=== PATIENT | male | born 1985 | race Caucasian/White ===

== ENCOUNTER 2017-02-18 19:49 | Emergency (ER) | payer SELFPAY ==
[~2017-02-18] VITALS: Ht 177.8 cm; Wt 67.7 kg
[2017-02-18 19:50] VITALS: TEMP 98.6
[2017-02-18] MEDS ORDERED: ATARAX 10MG10 MG/TAB PO (19:55)
[2017-02-18 21:29] LABS: BASO % 0.2 % (0.0-2.0); EOS % 0.1 % (0-4.0); GRAN # 14.9 (1.4-6.5); GRAN % 89.4 % (42.2-75.2); HEMATOCRIT 47.9 % (42.0-52.0); LYMPH # 0.5 (1.2-3.4); LYMPH % 2.8 % (20.0-51.0); MEAN CELL VOLUME 88 fl (80.0-100.0); MEAN CORPUSCULAR HEMOGLOBIN 29 pg (27.0-31.0); MEAN CORPUSCULAR HGB CONC 33 g/dl (33.0-37.0); MEAN PLATELET VOLUME 10.1 fl (7.4-10.4); MONO # 1.2 (0.1-0.6); MONO % 7.1 % (1.7-9.3); PLATELET COUNT 373 K/mm3 (130-400); RED BLOOD COUNT 5.44 M/mm3 (4.20-5.60); WHITE BLOOD COUNT 16.7 K/mm3 (4.8-10.8)
[2017-02-18 21:38] LABS: ALBUMIN 5.6 gm/dL (3.5-5.0); BILIRUBIN,TOTAL 0.9 mg/dL (0.0-1.0); CALCIUM 10.3 mg/dL (8.4-10.2); CREATININE, serum 0.66 mg/dL (0.66-1.25); POTASSIUM 3.5 mmol/L (3.4-5.0)
[2017-02-18 23:37] VITALS: BP 110/82; PULSE 99
[2017-02-18] MEDS ORDERED: PHENERGAN 25 TA25 MG PO (23:53)
== END 2017-02-18 23:37 | disposition home or self-care (01) ==
LOC: COL.ER 19:49
PROVIDERS: Physician Assistant
DX: R11.2 Nausea with vomiting, unspecified (principal); R19.7 Diarrhea, unspecified
CPT/HCPCS: J1200; J2270; J2550; J7030; J7040